=== PATIENT | female | born 1965 | race Caucasian/White ===

== ENCOUNTER 2021-01-14 13:30 | Outpatient (CLI) | payer BC | END 2021-01-14 13:31 | disposition home or self-care (01) | LOC: BICMAMMO 13:30 | PROVIDERS: ATTEND Family Medicine | DX: N63.0 Unspecified lump in unspecified breast (principal) | CPT/HCPCS: 77066; G0279 ==

== ENCOUNTER 2023-10-19 09:26 | Outpatient (CLI) | payer BC | END 2023-10-19 09:27 | disposition home or self-care (01) | LOC: SCSMRI 09:26 | PROVIDERS: ATTEND Family Medicine | DX: M79.672 Pain in left foot (principal); M72.2 Plantar fascial fibromatosis; S93.492A Sprain of other ligament of left ankle, initial encounter; S93.432A Sprain of tibiofibular ligament of left ankle, initial encounter ==